=== PATIENT | female | born 1955 | race Caucasian/White ===

== ENCOUNTER 2018-04-15 11:38 | Emergency (ER) | payer BC ==
--- NOTE | 2018-04-15 13:45 | ED ---
Dizziness - HPI Summary HPI Summary: This pt is a 62 y/o female, accompanied by very good friend, presenting to [facility] c/o dizziness, near syncope, weakness today. Pt reports she woke up feeling fine this morning when suddenly at around 10:25 she began to feel lightheaded, faint, and weak. She states she had hx of syncope. Pt then laid on the floor and put her feet up for 20-40 minutes but continued to feel lightheaded. She states she tried standing up but she didn't "feel right." Pt also reports solar plexus discomfort, tingling in arms (more R>L) and on head. She describes pressure on chest that "didn't last very long." Denies SOB, swelling in calf, pain in calf, nausea, vomiting. She called her PCP (Dr. Linda Heart) and was advised to come to the ED. PMHx includes carpal tunnel. 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 Pt is on low estrogen topical, but has not used it for 1 or 2 months. NKDA. No PMHx. - History Of Current Complaint Chief Complaint: EDDizziness Stated Complaint: DIZZINESS/LIGHTHEADED Time Seen by Provider: 04/15/18 13:41 Hx Obtained From: Patient Onset/Duration: Still Present Timing: Hours Severity Initially: Moderate Severity Currently: Mild Character: Lightheaded, Weak, Dizzy Aggravating Factor(s): Exertion Alleviating Factor(s): Nothing Associated Signs And Symptoms: Positive: Chest Pain - pressure, Other: - POS: solar plexus discomfort. 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 Skin CA removal on thigh Infectious Disease History: No Infectious Disease History: Denies: Traveled Outside the [place] in Last 30 Days - Family History Known Family History: Positive: Unknown - pt is adopted, unknown FHx - Social History Lives: With Family - with Alcohol Use: None Substance Use Type: Reports: None Smoking Status (MU): Never Smoked Tobacco Review of Systems Negative: Fever, Chills Positive: Chest Pain - chest pressure Negative: Shortness Of Breath Gastrointestinal: Other - solar plexus discomfort Negative: Vomiting, Nausea Negative: Edema - in calf, Other - calf pain Neurological: Other - POS: near syncope, lightheadedness, dizziness Positive: Weakness, Paresthesia - arms and head All Other Systems Reviewed And Are Negative: Yes Physical Exam - Summary Physical Exam Summary: Appearance: Well-appearing, moderate pain distress, well-nourished Skin: Warm, color reflects adequate perfusion, dry Head: Normal Head/Face inspection, atraumatic Eyes: Conjunctiva clear ENT: Normal inspection Neck: Supple, no nodes, no JVD. Thyroid is not palpable. Respiratory: Lungs clear, normal breath sounds, no respiratory distress Cardio: RRR, No murmur, pulses normal, brisk capillary refill Abdomen: Soft, nontender Bowel sounds: Present Musculoskeletal: Strength Intact/ROM intact, no calf tenderness, no edema. Psychological: Normal Neuro: Alert, muscle tone normal, no focal deficit Triage Information Reviewed: Yes Vital Signs On Initial Exam: Initial Vitals Temp Pulse Resp BP Pulse Ox 96.6 F 65 15 131/58 100 04/15/18 11:43 04/15/18 11:43 04/15/18 11:43 04/15/18 11:43 04/15/18 11:43 Vital Signs Reviewed: Yes Diagnostics - Vital Signs Vital Signs Temp Pulse Resp BP Pulse Ox 04/15/18 11:43 96.6 F 65 15 131/58 100 - Laboratory Result Diagrams: 04/15/18 14:34 04/15/18 14:34 Lab Statement: Any lab studies that have been ordered have been reviewed, and results considered in the medical decision making process. - Radiology Chest XR Xray Interpretation: No Acute Changes Radiology Interpretation Completed By: ED Physician - CT Brain CT CT Interpretation: No Acute Changes - IMPRESSION: No acute intracranial abnormality. Dr. Jeter has reviewed this report. CT Interpretation Completed By: Radiologist - EKG 13:52 Cardiac Rate: NL - at 65 bpm EKG Rhythm: Sinus Rhythm ST Segment: Non-Specific Ectopy: None EKG Interpretation: nml AV/IV CT, nml QTc. Left axis -60. EKG Comparison: No Significant Change - compared to prior on 12/02/12. 17:19 Cardiac Rate: Bradycardia - at 53 bpm EKG Rhythm: Sinus Bradycardia ST Segment: Non-Specific Ectopy: None EKG Interpretation: nml AV/IV CT, nml QTc. Left axis -50. EKG Comparison: No Significant Change - no change compared to earlier today at 13:52 Re-Evaluation - Re-Evaluation First Eval Re-Evaluation Time: 17:06 Change: Improved Comment: BP 104/63, HR is 58 bpm, O2 sat is 100% on room air. Pt states her heart rate is usually in the 60's. Denies any discomfort currently. Second Eval Re-Evaluation Time: 18:33 Change: Improved Comment: I reviewed the chest XR with the pt as well as discharge instructions. She has no chest pain or dizziness. Pt is ready to drink. She is ready for discharge. Dizzy Course/Dx - Course Course Of Treatment: Pt medications reviewed this visit. Pt is a 62 y/o female , with hx of syncope, presenting to the ED for near syncope, lightheadedness, and weakness today. Pt last had a chest XR was in 2012. Two troponins are both negative and D-dimer is less than 200. Brain CT is negative for an acute intracranial abnormality. Chest XR is negative as read by me, pending official radiology report. - Diagnoses Provider Diagnoses: Near syncope Discharge - Sign-Out/Discharge Documenting (check all that apply): Patient Departure - Discharge - Discharge Plan Condition: Stable Disposition: HOME Patient Education Materials: Near Syncope (ED) Referrals: Linda Heart MD [Primary Care Provider] - 2 Days Additional Instructions: We have given you a copy of your labs and CT studies done today. Your chest xray reading is preliminary, but Dr. Jeter does not see any abnormalities. We will contact you if there is a change in your xray reading. We did not find a definite cause for your symptoms today, but we did not diagnose any serious cardiac or pulmonary or brain problems. Have definite follow up with Dr. Heart. Return to the ER if you have any new or worsening symptoms. - Attestation Statements Document Initiated by Scribe: Yes Documenting Scribe: Sugar Harris Provider For Whom Scribe is Documenting (Include Credential): Dr. Alyse Jeter MD Scribe Attestation: Sugar Miguel, scribed for Dr. Alyse Jeter MD on 04/15/18 at 1835.
[2018-04-15] MEDS ORDERED: NS 0.9% 1000 ML* 2,000 ML IV ONE (13:49)
[2018-04-15 14:41] LABS: ABS Basophils 0 10^3/ul (0-0.2); ABS Eosinophils 0 10^3/ul (0-0.6); ABS Monocytes 0.2 10^3/ul (0-0.8); ABS Neutrophils 4.9 10^3/ul (1.5-7.7); ABS Nucleated RBC 0 10^3/ul; Eosinophil % 0.1 % (0-6); Hematocrit 37 % (35-47); Hemoglobin 12.5 g/dl (12.0-16.0); Lymphocyte % 15.6 % (25-47); Mean Corpuscular HGB Conc 34 g/dl (31-36); Mean Corpuscular Hemoglobin 31 pg (27-31); Mean Corpuscular Volume 90 fL (80-97); Mean Platelet Volume 7.2 um3 (7.4-10.4); Nucleated Red Blood Cells % 0.1; Platelet Count 250 10^3/ul (150-450); Red Blood Count 4.08 10^6/ul (4.00-5.40); Red Cell Distribution Width 14 % (10.5-15); White Blood Count 6.1 10^3/ul (3.5-10.8)
[2018-04-15 14:59] LABS: EGFR Non-African American 76.9 (>60)
--- NOTE | 2018-04-15 15:33 | RAD ---
Indication: Dizziness. Syncope. Hypotension. Comparison: No relevant prior exams available on the [facility] PACS for comparison. Technique: Noncontrast CT vertex of skull through foramen magnum. Report: Mild prominence of the cerebral sulci and cerebellar fissures reflecting involutional change. The ventricles and basal cisterns are normal for age. Soria matter white matter differentiation is preserved without evidence for edema. No intra or extra axial hemorrhage, mass, or fluid collection detected. Unremarkable visualized orbital contents. Unremarkable calvarium and skull base. Unremarkable scalp. The visualized paranasal sinuses and mastoid air spaces are clear. IMPRESSION: #. No acute intracranial abnormality.
[2018-04-15 16:48] LABS: Urine Appearance Clear; Urine Blood Negative (Negative); Urine Color Colorless; Urine Ketones Negative (Negative); Urine Protein Negative (Negative); Urine Specific Gravity 1.002 (1.010-1.030); Urine Urobilinogen Negative (Negative)
[2018-04-15 18:37] VITALS: BP 122/70
--- NOTE | 2018-04-16 07:16 | RAD ---
INDICATION: Near syncope. COMPARISON: Comparison is made with a prior chest x-ray study from February 01, 2013. TECHNIQUE: Dual-energy PA and lateral views of the chest were obtained. FINDINGS: The heart is within normal limits in size. Mediastinal and hilar contours appear within normal limits. The lungs are clear. No pleural effusion is present. IMPRESSION: NO EVIDENCE FOR ACTIVE CARDIOPULMONARY DISEASE. R0
== END 2018-04-15 18:36 | disposition home or self-care (01) ==
LOC: ED 11:38
DX: R55 Syncope and collapse (principal); Z85.828 Personal history of other malignant neoplasm of skin
CPT/HCPCS: 36415; 70450; 71046; 80053; 81003; 83605; 83735; 84436; 84443; 84484; 85025; 85379; 93005; 96360; 99283

== ENCOUNTER 2018-04-19 12:17 | Observation (INO) | payer BC ==
[2018-04-19] MEDS ORDERED: NS 0.9% 1000 ML* 1,000 ML IV ONE ×2 (17:58→17:59)
[2018-04-19] MEDS ORDERED: Aspirin 81 mg CHEW TAB* 81 MG TAB.CHEW PO ONE (17:59)
--- NOTE | 2018-04-19 18:01 | ED ---
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 She laid supine on the ground because she thought she might fall. Pt had the same sx when she came to [facility] on 04/15/18. At bedside, she states feeling "close to normal." Associated sx: lightheadedness, mild nausea, pressure along her solar plexus which is still present, chills. Denies SOB, CP. Alleviating factors: burping. She is approx 5 years into menopause. Denies daily medication aside from topical hormones. PCP is Dr. Heart. - History Of Current Complaint Chief Complaint: EDDizziness Time Seen by Provider: 04/19/18 17:46 Hx Obtained From: Patient, Family/Fluid Pump Operator - sister Onset/Duration: Sudden Onset, Resolved Activity At Onset: At Rest Associated Head Trauma: No Alleviating Factor(s): Spontaneous Resolution Associated Signs And Symptoms: Lightheadedness, Other - pos: nausea, pressure at solar plexus - Allergies/Home Medications Allergies/Adverse Reactions: Allergies Allergy/AdvReac Type Severity Reaction Status Date / Time No Known Allergies Allergy Verified 04/15/18 11:45 Home Medications: Home Medications NK [No Home Medications Reported] 04/19/18 [History Confirmed 04/19/18] PMH/Surg Hx/FS Hx/Imm Hx Previously Healthy: No Endocrine/Hematology History: Denies: Hx Diabetes Cardiovascular History: Denies: Hx Hypertension Neurological History: Reports: Other Neuro Impairments/Disorders - Carpal tunnel - Cancer History Cancer Type, 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 Skin CA removal on thigh Infectious Disease History: No Infectious Disease History: Denies: Traveled Outside the [place] in Last 30 Days - Family History Known Family History: Positive: Unknown - pt is adopted, unknown FHx - Social History Occupation: Employed Full-time Lives: With Family Alcohol Use: None Substance Use Type: Reports: None Smoking Status (MU): Never Smoked Tobacco Review of Systems Positive: Chills. Negative: Fever Negative: Erythema Negative: Sore Throat Negative: Chest Pain Negative: Shortness Of Breath, Cough Positive: Nausea - mild, Other - pressure to solar plexus. Negative: Abdominal Pain, Vomiting Negative: dysuria, hematuria Negative: Myalgia, Edema Negative: Rash Neurological: Other - neg: dizziness; pos: lightheadedness Positive: Syncope - near syncope All Other Systems Reviewed And Are Negative: Yes Physical Exam - Summary Physical Exam Summary: Constitutional: Well-developed, Well-nourished, Alert. (-) Distressed Skin: Warm, Dry HENT: Normocephalic; Atraumatic Eyes: Conjunctiva normal Neck: Musculoskeletal ROM normal neck. (-) JVD, (-) Stridor, (-) Tracheal deviation Cardio: Rhythm regular, rate normal, Heart sounds normal; Intact distal pulses; The pedal pulses are 2+ and symmetric. Radial pulses are 2+ and symmetric. (-) Murmur Pulmonary/Chest wall: Effort normal. (-) Respiratory distress, (-) Wheezes, (-) Rales Abd: Soft, (-) epigastric tenderness, (-) Distension, (-) Guarding, (-) Rebound Musculoskeletal: (-) Edema Lymph: (-) Cervical adenopathy Neuro: Alert, Oriented x3 Psych: Mood and affect Normal Triage Information Reviewed: Yes Vital Signs On Initial Exam: Initial Vitals Temp Pulse Resp BP Pulse Ox 98.1 F 65 14 124/62 100 04/19/18 12:19 04/19/18 12:19 04/19/18 12:19 04/19/18 12:19 04/19/18 12:19 Vital Signs Reviewed: Yes Diagnostics - Vital Signs Vital Signs Temp Pulse Resp BP Pulse Ox 04/19/18 16:59 97.4 F 74 18 103/57 99 04/19/18 14:14 98.9 F 72 16 119/56 100 04/19/18 12:19 98.1 F 65 14 124/62 100 - Laboratory Result Diagrams: 04/19/18 18:01 04/19/18 18:01 Lab Statement: Any lab studies that have been ordered have been reviewed, and results considered in the medical decision making process. - Radiology CXR Xray Interpretation: No Acute Changes Radiology Interpretation Completed By: ED Physician - EKG 1818 Cardiac Rate: NL - 60bpm EKG Rhythm: Sinus Rhythm EKG Interpretation: no STEMI Course/Dx Course Of Treatment: Recurring syncope, bounce back to ED. May need carotid doppler or echo. - Diagnoses Provider Diagnoses: Chest pain, unspecified, Syncope - Physician Notifications Discussed Care of Patient With: Hannah Gusman Time Discussed With Above Provider: 19:13 Instructed by Provider To: Admit As Inpatient Discharge - Sign-Out/Discharge Documenting (check all that apply): Patient Departure - Discharge Plan Condition: Stable Disposition: ADMITTED TO [facility] Referrals: Linda Heart MD [Primary Care Provider] - - Attestation Statements Document Initiated by Scribe: Yes Documenting Scribe: Minna Neri Provider For Whom Scribe is Documenting (Include Credential): Dr. Rodolfo Muñoz MD Scribe Attestation: Minna Miguel, scribed for Dr. Rodolfo Muñoz MD on 04/19/18 at 1912.
[2018-04-19 18:21] LABS: ABS Basophils 0 10^3/ul (0-0.2); ABS Eosinophils 0 10^3/ul (0-0.6); ABS Lymphocytes 2.1 10^3/ul (1.0-4.8); ABS Monocytes 0.4 10^3/ul (0-0.8); ABS Neutrophils 5.1 10^3/ul (1.5-7.7); ABS Nucleated RBC 0 10^3/ul; Eosinophil % 0.1 % (0-6); Hematocrit 40 % (35-47); Hemoglobin 13.8 g/dl (12.0-16.0); Lymphocyte % 27.3 % (25-47); Mean Corpuscular HGB Conc 35 g/dl (31-36); Mean Corpuscular Hemoglobin 31 pg (27-31); Mean Corpuscular Volume 89 fL (80-97); Mean Platelet Volume 7.2 um3 (7.4-10.4); Nucleated Red Blood Cells % 0; Platelet Count 281 10^3/ul (150-450); Red Blood Count 4.44 10^6/ul (4.00-5.40); Red Cell Distribution Width 14 % (10.5-15); White Blood Count 7.6 10^3/ul (3.5-10.8)
[2018-04-19 18:37] LABS: EGFR Non-African American 80.5 (>60)
[2018-04-19] MEDS ORDERED: Nitroglycerin TAB 0.4 MG* 0.4 MG TAB SL ONE (18:57)
[2018-04-19] MEDS ORDERED: Al Hydrox/Mg Hydrox/Simet LIQ* 30 ML UDC PO PRN (19:29)
[2018-04-19] MEDS ORDERED: Albuterol 2.5 MG/3 ML NEB.SOL* (0.083%) INH PRN (19:29)
[2018-04-19] MEDS ORDERED: Ondansetron INJ* 2 MG/ML VIAL IV PRN (19:29)
[2018-04-19] MEDS ORDERED: Morphine INJ* 2 MG/ML 1 ML SYRINGE (TWO MG - NEW SYRINGE VERSION) IV PRN (19:29)
[2018-04-19] MEDS ORDERED: Acetaminophen TAB* 325 MG PO PRN (19:29)
[2018-04-19] MEDS ORDERED: NS 0.9% 1000 ML* 1,000 ML IV SCH (19:30)
--- NOTE | 2018-04-19 22:59 | HP ---
AMENDED REPORT NOW INCLUDES COSIGNER DESIGNATION - ESIGNED BEFORE ADJUSTMENT CC: Dr. Heart* ADMISSION HISTORY AND PHYSICAL: DATE OF ADMISSION: 04/19/18 PATIENT OF ADMITTING HOSPITALIST: Hannah Gusman DO * (DICTATED BY RIZWANA VALADEZ) PRIMARY CARE PROVIDER: Dr. Linda Heart. CHIEF COMPLAINT: Dizziness. HISTORY OF PRESENT ILLNESS: Ms. Orr is a 62-year-old female with no significant past medical history who presented to the emergency room for the second time today within the past week with complaints of dizziness and near syncopal episode. The patient was here in the ED about 4 days ago with similar symptoms. She has been checking her blood pressure at home and reports being low and went down to 60/30 today prior to presentation. She reports that she felt dizzy and lightheaded with some mild nausea, but denied any loss of consciousness, fall, head trauma, chest pain, or any other associated symptoms. She was evaluated 4 days ago and had a negative troponin and a normal EKG showing only bradycardia and her blood pressure appeared to be within normal limits. She was given IV fluid bolus and was sent home. She returned today with similar complaints; however, she denies chest pain or tightness. She denies any history of vertigo or inner ear problems. She is approximately 5 years into menopause and has been extremely healthy and does not take any medication on a regular basis. She was evaluated in the emergency room and her vitals were taken regularly showing her blood pressure to be in the range of 100 to 120s for systolic. Her EKG showed on significant changes. Her chest x- rays was normal and she reports that her was in the hospital few days ago and currently being treated as an outpatient for community-acquired pneumonia. The patient herself denies any cough, shortness of breath, sputum production or fever. Her first troponin was drawn in ED about an hour ago and was essentially negative; however, given her recurrent symptoms we were asked to see the patient to consider admission for observation overnight and to trend her troponin. PAST MEDICAL HISTORY: Essentially unremarkable. She denies any history of lung , liver, heart or kidney disease. PAST SURGICAL HISTORY: Significant for excision of squamous cell carcinoma from her thigh as well as removal of a left breast fatty tumor about 10 years ago. CURRENT MEDICATIONS: She does not take any medications at home. ALLERGIES: She has no known drug allergies. FAMILY HISTORY: She denies any family history of coronary artery disease or stroke. SOCIAL HISTORY: The patient is a nonsmoker. She denies alcohol use. 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 She wishes to be a full code. REVIEW OF SYSTEMS: See HPI. Otherwise, 12-point review of systems were examined and were essentially negative. PHYSICAL EXAMINATION GENERAL: She is a pleasant, healthy-appearing, slim female, in no acute distress or discomfort at the time of admission. VITAL SIGNS: Reveal a temperature of 97.4, pulse of 84, blood pressure 124/60, respirations of 20 with O2 sats of 99% on room air. HEENT: Head is normocephalic, atraumatic. Sclerae anicteric. PERRLA. EOMs intact. Oropharynx is pink and moist. NECK: Supple. Trachea midline. No cervical adenopathy or thyromegaly or JVD. LUNGS: Clear to auscultation bilaterally. HEART: Regular rate and rhythm. Normal S1 and S2 without rubs, murmurs, or gallops. BACK: With normal curvature, no CVA tenderness. BREASTS: Exam deferred at this time. ABDOMEN: Soft, nontender, and nondistended. No hernias, masses, or hepatosplenomegaly. EXTREMITIES: Without cyanosis, clubbing, or edema. NEUROLOGIC: She is awake, alert, and oriented x4. Tongue is midline and hand systems security analyst is equal bilaterally. The sensation is intact throughout. RECTAL: Exam deferred at this time. LABORATORY WORKUP: CBC with white count of 7000, hemoglobin of 13.8 hematocrit of 40, and platelets of 281. Her D-dimer was less than 200. Chemistry with sodium of 141, potassium 4.0, chloride 106, CO2 of 27, BUN of 13 , creatinine 0.7, her glucose was 106. LFTs within normal limits and troponin first draw was 0. ACCESSORY DIAGNOSTIC DATA: Chest x-ray was done, not read by radiologist; however, appears normal with no evidence of any acute cardiopulmonary disease. Her EKG showed sinus rhythm with no ST changes. IMPRESSION: A 62-year-old female with no significant past medical history who experienced intermittent episodes of dizziness and what appears to be hypotension, using home blood pressure measure machine who will be admitted for observation to telemetry unit for the followin. Dizziness. I highly doubt any cardiogenic etiology behind her dizzy episodes. She did not have any chest pain or any history of supporting risk factors for coronary artery disease. I ran her CARLINE score and it was zero. We will trend her troponin overnight and repeat her EKG in the morning. Given the fact that the patient will be admitted on a Sunday, there will be no plans to do a stress test on Sunday; however, we discussed with the patient that she needs to follow up with her primary care physician and we can arrange for her to have a stress test and also a transthoracic echocardiogram as an outpatient. I anticipate this is either related to slight dehydration since she felt better a 2-L bolus in the emergency room or could be an inner ear issue; however , she denies any vertigo or any hearing changes. We will observe her closely and I will her orthostatic vitals overnight. 2. DVT prophylaxis. The patient is a low risk and will utilize SCDs and encouraged to ambulate. 3. Code status. She wishes to be a full code. TIME SPENT: Approximately 45 minutes were spent admitting this patient of which greater than 50% were taking history and performing physical exam. I went on and discussed the case with my attending, who agreed to plan of care. RIZWANA VALADEZ [id number]/CPS #: [id number] MTDD
[2018-04-20] MEDS ORDERED: NS 0.9% 1000 ML* 1,000 ML IV ONE (02:05)
[2018-04-20 06:32] LABS: ABS Basophils 0 10^3/ul (0-0.2); ABS Eosinophils 0.1 10^3/ul (0-0.6); ABS Lymphocytes 2.2 10^3/ul (1.0-4.8); ABS Monocytes 0.3 10^3/ul (0-0.8); ABS Neutrophils 2.4 10^3/ul (1.5-7.7); ABS Nucleated RBC 0 10^3/ul; Eosinophil % 1.9 % (0-6); Hematocrit 32 % (35-47); Hemoglobin 10.9 g/dl (12.0-16.0); Lymphocyte % 43.1 % (25-47); Mean Corpuscular HGB Conc 35 g/dl (31-36); Mean Corpuscular Hemoglobin 31 pg (27-31); Mean Corpuscular Volume 89 fL (80-97); Mean Platelet Volume 7.2 um3 (7.4-10.4); Nucleated Red Blood Cells % 0.1; Platelet Count 208 10^3/ul (150-450); Red Blood Count 3.52 10^6/ul (4.00-5.40); Red Cell Distribution Width 14 % (10.5-15)
[2018-04-20 06:57] LABS: EGFR Non-African American 95.4 (>60)
--- NOTE | 2018-04-20 07:47 | PN ---
Subjective Date of Service: 04/20/18 Objective Active Medications: Acetaminophen (Tylenol Tab*) 650 mg PO Q4H PRN Al Hydrox/Mg Hydrox/Simethicone (Maalox Plus*) 30 ml PO Q6H PRN Albuterol (Ventolin 2.5 Mg/3 Ml Neb.Jenelle*) 2.5 mg INH [id number] AWAKE PRN Morphine Sulfate (Morphine Inj ((Syringe))*) 2 mg IV Q4H PRN Ondansetron HCl (Zofran Inj*) 4 mg IV Q4H PRN Vital Signs: Temp Pulse Resp BP Pulse Ox 98.6 F 52 20 110/56 98 04/20/18 04:01 04/20/18 04:01 04/20/18 04:01 04/20/18 04:01 04/20/18 04:01 Oxygen Devices in Use Now: None Result Diagrams: 04/20/18 06:17 04/20/18 06:17 Assess/Plan/Problems-Billing Assessment:
--- NOTE | 2018-04-20 07:48 | RAD ---
INDICATION: Syncope COMPARISON: Most recent comparison chest x-rays dated April 15, 2008 TECHNIQUE: Single AP portable view of the chest was obtained. FINDINGS: Image quality is compromised due to the relative inferiority of a portable chest x-ray. The heart and mediastinum exhibit normal size and contour. The lungs are grossly clear. There is no evidence of a large pleural effusion. Visualized bones are normal for the patient's age. IMPRESSION: No radiographic evidence for acute cardiopulmonary abnormality on this portable chest x-ray. R0
[2018-04-20 17:23] VITALS: BP 125/63
--- NOTE | 2018-04-20 17:59 | PN ---
Subjective Date of Service: 04/20/18 Interval History: Patient NAD and without complaint. Not currently lightheaded. Denies pain, shortness of breath, chest pain, palpitations, dizziness, N/V/D. Objective Active Medications: Acetaminophen (Tylenol Tab*) 650 mg PO Q4H PRN PRN Reason: FEVER/PAIN Al Hydrox/Mg Hydrox/Simethicone (Maalox Plus*) 30 ml PO Q6H PRN PRN Reason: INDIGESTION Albuterol (Ventolin 2.5 Mg/3 Ml Neb.Jenelle*) 2.5 mg INH [id number] AWAKE PRN PRN Reason: sob/wheezing Morphine Sulfate (Morphine Inj ((Syringe))*) 2 mg IV Q4H PRN PRN Reason: PAIN - SEVERE Ondansetron HCl (Zofran Inj*) 4 mg IV Q4H PRN PRN Reason: NAUSEA/VOMITING Vital Signs - 8 hr 04/20/18 04/20/18 11:37 15:45 Temperature 98.4 F Pulse Rate 59 50 Respiratory 16 Rate Blood Pressure 118/57 125/63 (mmHg) O2 Sat by Pulse 100 Oximetry Oxygen Devices in Use Now: None Eyes: No Scleral Icterus, PERRLA Ears/Nose/Mouth/Throat: NL Teeth, Lips, Gums, Clear Oropharnyx, Mucous Membranes Moist Neck: NL Appearance and Movements; NL JVP, Trachea Midline Respiratory: Symmetrical Chest Expansion and Respiratory Effort, Clear to Auscultation Cardiovascular: NL Sounds; No Murmurs; No JVD, RRR Abdominal: NL Sounds; No Tenderness; No Distention Skin: No Rash or Ulcers Neurological: Alert and Oriented x 3, NL Muscle Strength and Tone Lines/Tubes/Other Access: Clean, Dry and Intact Peripheral IV Nutrition: Taking PO's Result Diagrams: 04/20/18 06:17 04/20/18 06:17 Microbiology and Other Data: Microbiology 04/20/18 13:40 Stool Occult Blood (FAZAL) - Final Stool Assess/Plan/Problems-Billing Assessment: Pt is a 62 year old female with no significant PMH admitted for workup for lightheadedness/near syncope - Patient Problems (1) Lightheadedness Current Visit: Yes Status: Acute Code(s): R42 - DIZZINESS AND GIDDINESS SNOMED Code(s): 200663426 Comment: - Pt no longer experiencing the lightheadedness feeling that brought her in to the hospital. - Cardiac workup negative: EKG in ED and this AM both sinus rhythm without significant findings. Troponins were negative x3. Suggest outpatient cardiology follow-up to further investigate, perhaps with Holter monitoring. - Pt self recorded BP at home had systolics in the 60s, however upon arrival in the ED BP was 124/62. Orthostatics today were also negative. - One lab set showed mild normocytic normochromic anemia (H/H 10.9/32), so Iron studies, B12 and folate were ordered which were WNL, as well as fecal occult blood test which was negative. (2) DVT prophylaxis Current Visit: Yes Status: Acute Code(s): KCZ8534 - SNOMED Code(s): 220702007 Comment: - SCDs and ambulation (3) Full code status Current Visit: Yes Status: Acute Code(s): Z78.9 - OTHER SPECIFIED HEALTH STATUS SNOMED Code(s): 247068503 Status and Disposition: Discharge to home
--- NOTE | 2018-04-21 15:18 | DS ---
DISCHARGE SUMMARY: DATE OF ADMISSION: 04/19/18 DATE OF DISCHARGE: 04/20/18 ATTENDING PHYSICIAN: Dr. Braga.* (DICTATED BY KOFI SANDRA NP) PRIMARY CARE PROVIDER: Dr. Linda Heart. PRIMARY DIAGNOSIS: Lightheadedness/Pre-syncope SECONDARY DIAGNOSIS: None. MEDICATIONS: The patient has no home medications. HISTORY OF PRESENT ILLNESS/HOSPITAL COURSE: Ms. Orr is a 62-year-old female with no significant past medical history, who presented to the ED on 04/19/18 with a chief complaint of lightheadedness and near syncope. She was in her kitchen cooking when she felt a sudden onset of lightheadedness and had to lie down on the floor. The episode lasted for about 40 minutes, after which she was brought to the hospital. She denied any loss of consciousness, fall, trauma, chest pain, shortness of breath, or any other associated symptoms. She was in her usual state of health prior to the episode and did not endorse any recent illness and had been eating and drinking as usual. Of note, she was seen in the ED 4 days prior for a similar episode of lightheadedness and had a full evaluation. At that time, she had stable vitals, a negative troponin and EKG that displayed sinus bradycardia without acute changes. She was given some IV fluids, after which she endorsed feeling less lightheaded and was discharged home. During her second ED visit, her initial workup was again negative, with stable vitals, an EKG without acute changes, a normal CXR, and a negative troponin. She received IV fluids in the ED and reported her lightheadedness resolving, however given this was her second episode in the span of a week, she was admitted for observation with telemetry and for further workup. She did not have any further episodes of lightheadedness during her stay. She had troponin x3, which were all negative. Another EKG was done in the morning, which displayed sinus bradycardia with HR 53, but no acute abnormalities. Orthostatic vitals were WNL. Labs showed a mild normocytic, normochromic anemia , so iron studies, B12, and folate were ordered, which were all within normal limits as well as a fecal occult blood test, which was negative. The patient was discharged to home and will follow up with her primary care provider and Cardiology for further workup. DISPOSITION: Discharge to home DIET: Regular diet ACTIVITY: Activity as tolerated FOLLOW UP: Patient will follow up with her primary care provider, Dr. Linda Heart. We also recommend additional follow up with cardiology. KOFI SANDRA, [place] [place] [facility] [id number]/[facility] #: [id number] KYLE
== END 2018-04-20 18:05 | disposition home or self-care (01) ==
LOC: ED 12:17 → MEDTELE 19:29
PROVIDERS: ADMIT Hospitalist; ATTEND Internal Medicine
DX: R42 Dizziness and giddiness (principal); R11.0 Nausea; I95.9 Hypotension, unspecified; R07.9 Chest pain, unspecified; I44.4 Left anterior fascicular block; R00.1 Bradycardia, unspecified
CPT/HCPCS: 36415; 71045; 80048; 80053; 82272; 82533; 82607; 82728; 82746; 83540; 83550; 83605; 84484; 85025; 85379; 93005; 96360; 96361; 99284; A9270-GY; G0378